=== PATIENT | female | born 1945 | race Caucasian/White ===

== ENCOUNTER 2018-03-03 13:09 | Inpatient (IN) | payer MEDICARE, BC ==
[~2018-03-03] VITALS: Ht 165.1 cm; Wt 86.2 kg
[2018-03-03] MEDS ORDERED: PANTOPRAZOLE 80 MG in IV NS 0.9% 500 ML IV ONE (13:30)
[2018-03-03] MEDS ORDERED: PANTOPRAZOLE 80 MG in IV NS 0.9% 100 ML IV ONE (13:30)
[2018-03-03] MEDS ORDERED: IV NS 0.9% 1,000 ML BAG IV ONE (13:30)
[2018-03-03 13:36] LABS: BASOPHILS % (AUTO) 0.2 % (0.0-2.0); EOSINOPHILS % (AUTO) 0.2 % (0.0-6.0); HEMATOCRIT 28 % (33-45); HEMOGLOBIN 9.8 g/dL (11.5-14.8); LYMPHOCYTES # (AUTO) 1.2 /CMM (0.8-4.8); LYMPHOCYTES % (AUTO) 9.4 % (20.0-44.0); MEAN CORPUSCULAR HGB CONC 35 g/dl (31.0-36.0); MEAN CORPUSCULAR VOLUME 90 fL (82-100); MONOCYTES # (AUTO) 0.4 /CMM (0.1-1.30); MONOCYTES % (AUTO) 3.1 % (2.0-12.0); NEUTROPHILS # (AUTO) 11.4 /CMM (1.8-8.9); NEUTROPHILS % (AUTO) 87.1 % (43.0-81.0); PLATELET COUNT (AUTO) 367 /CMM (150-450); RDW COEFFICIENT OF VARIATION 12.2 (11.5-15.0); RED BLOOD CELL COUNT(AUTO) 3.13 MIL/uL (4.0-5.2)
[2018-03-03] MEDS ORDERED: PANTOPRAZOLE 40 MG VIAL ONE (13:42)
[2018-03-03 13:45] LABS: CALCIUM, SERUM 8.3 mg/dL (8.5-10.1); CARBON DIOXIDE 23 mmol/L (21-32); CHLORIDE 105 mmol/L (98-107); CREATININE 0.8 mg/dL (0.6-1.3); GLUCOSE 231 mg/dL (74-106); POTASSIUM 4.3 mmol/L (3.5-5.1); SODIUM SERUM 137 mmol/L (136-145); UREA NITROGEN, BLOOD 31 mg/dL (7-18)
--- NOTE | 2018-03-03 13:45 | NUR ---
PAGED DR. OBANDO FOR CONSULT
[2018-03-03 13:50] LABS: INR 1.04 (0.85-1.15)
[2018-03-03 13:51] LABS: ALANINE AMINOTRANSFERASE 24 U/L (12-78); ALKALINE PHOSPHATASE 55 U/L (46-116); ASPARTATE AMINOTRANSFERASE 16 U/L (15-37); BILIRUBIN,DIRECT 0.2 mg/dL (0.0-0.2); BILIRUBIN,TOTAL 0.8 mg/dL (0.2-1.0); LIPASE 90 U/L (73-393)
--- NOTE | 2018-03-03 13:51 | NUR ---
IVONE JALLOH FOR PANEL - AGRICULTURAL RESEARCHER IS DR. RAYGOZA Addendum: 03/03/[address] AGRICULTURAL RESEARCHER IS DANNA CRAWFORD
[2018-03-03 13:54] LABS: TROPONIN I < 0.017 ng/mL (0.00-0.056)
--- NOTE | 2018-03-03 13:58 | NUR ---
NURSE SUP AWARE TELE BED NEEDED FOR PATIENT
[2018-03-03] MEDS ORDERED: ONDANSETRON HCL/PF 4 MG/2 ML VIAL IV ONE (14:00)
--- NOTE | 2018-03-03 14:00 | NUR ---
DR. CRAWFORD CALLED BACK AND IS SPEAKING WITH DR. BAKER FOR REPORT
[2018-03-03] MEDS ORDERED: ONDANSETRON HCL/PF 4 MG/2 ML VIAL ONE (14:02)
[2018-03-03] MEDS ORDERED: ATOR10TA PO (14:09)
[2018-03-03] MEDS ORDERED: ASPI-1169 PO (14:09)
[2018-03-03] MEDS ORDERED: MAG HYDROX/AL HYDROX/SIMETH 30 ML UDC PO PRN (14:30)
[2018-03-03] MEDS ORDERED: MAGNESIUM HYDROXIDE 30 ML UDC PO PRN (14:30)
[2018-03-03] MEDS ORDERED: ONDANSETRON HCL/PF 4 MG/2 ML VIAL IVP PRN (14:30)
[2018-03-03] MEDS ORDERED: ACETAMINOPHEN 325 MG TABLET PO PRN (14:30)
[2018-03-03] MEDS ORDERED: Z GUARD REMEDY 2 OZ OINT TP PRN (14:30)
[2018-03-03] MEDS ORDERED: HYDROCODONE/APAP 5/325MG 1 EACH TABLET PO PRN (14:30)
[2018-03-03] MEDS ORDERED: MAG30ORA PO (14:36)
[2018-03-03] MEDS ORDERED: LORA10TA68 PO (14:36)
--- NOTE | 2018-03-03 14:40 | NUR ---
REPORT GIVEN TO CHIP NASSAR.
[2018-03-03] MEDS ORDERED: MORPHINE SULFATE INJ 4 MG/ML DISP.SYRIN IV PRN (15:30)
--- NOTE | 2018-03-03 15:30 | NUR ---
RESEARCH AND DEVELOPMENT RESEARCHER NOTE: RECEIVED PATIENT IN ROOM 110 AND REPORT WAS GIVEN BY CECILIA BROWN RN. TRANSFERRED FROM ER VIA STRETCHER AND ACCOMPANIED BY THE AND 2 ER STAFF. PATIENT IS ALERT, ORIENTED AND ABLE TO MAKE HER NEEDS KNOWN. RESPIRATION IS EVEN AND UNLABORED. NO SHORTNESS OF BREATH NOTED. ON SUBSTANCE ABUSE TECHNICIAN, SR HR= 89. SATURATING 94% IN ROOM AIR. DENIED ANY PAIN. (R) AC 20G NOTED IN PLACED INTACT AND PATENT. HOB ELEVATED AT A MINIMAL PER PATIENT'S REQUEST. COMPLETE BODY ASSESSMENT WAS DONE. SKIN IS INTACT. AFEBRILE. CALL LIGHT WITHIN REACH. NEEDS ANTICIPATED. V/S= 127/62, 98.5, 89, 20, 94% IN ROOM AIR, 0/10.
[2018-03-03 16:00] VITALS: BP 127/62
--- NOTE | 2018-03-03 16:00 | NUR ---
ALLERGIST NOTE: URINE SPECIMEN WAS COLLECTED AND IT WAS SENT TO THE LAB.
[2018-03-03] MEDS: PANTOPRAZOLE 40 MG VIAL IV SCH (16:19)
[2018-03-03] MEDS: IV NS 0.9% 1,000 ML IV PRN (16:20)
[2018-03-03 18:06] VITALS: BP 129/61
[2018-03-03 19:36] LABS: APPEARANCE,URINE CLEAR (CLEAR); BILIRUBIN,URINE NEGATIVE (NEGATIVE); BLOOD, URINE NEGATIVE Ery/uL (NEGATIVE); COLOR,URINE YELLOW (YELLOW); KETONES,URINE NEGATIVE (NEGATIVE); LEUKOCYTE ESTERASE ,URINE NEGATIVE (NEGATIVE); NITRITE, URINE NEGATIVE (NEGATIVE); PROTEIN,URINE NEGATIVE (NEGATIVE); UGLUCOSE NEGATIVE (NEGATIVE); UROBILINOGEN,URINE 0.2 EU/dL (0.2)
--- NOTE | 2018-03-03 19:51 | NUR ---
DITCHING MACHINE OPERATOR NOTE: PATIENT IS ON STABLE CONDITION AT THIS TIME. DENIED ANY PAIN. NO NAUSEA/VOMITING NOTED DURING THE SHIFT. IV FLUID (NS@75ML/HR) INFUSING ON THE (R) AC WITH NO DISCOMFORT. PATIENT PREFERRED TO HAVE HER HEAD LAYING FLAT AND LESS MOVEMENT TO PREVENT HER FROM FEELING NAUSEOUS. REPORT GIVEN TO CHIP GARCIA FOR CONTINUITY OF CARE. SHE WAS INTRODUCED TO THE PATIENT AND .
[2018-03-03 20:00] VITALS: BP 99/48
--- NOTE | 2018-03-03 20:00 | NUR ---
MOLD MACHINE OPERATOR OPENING NOTES RECEIVED REPORT FROM KALYAN SAUNDERS. PATIENT A/A/O X4, ABLE TO MAKE NEEDS KNOWN. BREATHING EVEN & UNLABORED, TOLERATING ROOM AIR. ON TELE W/ SINUS RHYTHM, HR 85. RIGHT AC IV #20 INTACT & PATENT W/ DRESSING CDI & IVF NS INFUSING WELL @ 75 ML/HR. CURRENTLY ON BEDREST. DENIES ANY PAIN OR DISCOMFORT @ THIS TIME. NO N/V NOTED. SAFETY MEASURES MAINTAINED & INSTRUCTED TO USE CALL LIGHT FOR ASSISTANCE. WILL CONTINUE TO MONITOR.
[2018-03-03 21:22] LABS: BASOPHILS % (AUTO) 0.1 % (0.0-2.0); HEMATOCRIT 21 % (33-45); LYMPHOCYTES # (AUTO) 0.9 /CMM (0.8-4.8); LYMPHOCYTES % (AUTO) 9.2 % (20.0-44.0); MEAN CORPUSCULAR HGB CONC 34 g/dl (31.0-36.0); MEAN CORPUSCULAR VOLUME 95 fL (82-100); MONOCYTES # (AUTO) 0.3 /CMM (0.1-1.30); MONOCYTES % (AUTO) 2.5 % (2.0-12.0); NEUTROPHILS % (AUTO) 88.2 % (43.0-81.0); PLATELET COUNT (AUTO) 265 /CMM (150-450); RDW COEFFICIENT OF VARIATION 13.2 (11.5-15.0); RED BLOOD CELL COUNT(AUTO) 2.19 MIL/uL (4.0-5.2); WHITE BLOOD COUNT (AUTO) 10.2 K/uL (4.3-11.0)
--- NOTE | 2018-03-03 21:29 | NUR ---
RN NOTE RECEIVED CALL FROM LAB, HG 7.0, NOTIFIED PRIMARY NURSE RADHA SAUNDERS
--- NOTE | 2018-03-03 22:00 | NUR ---
OFFICE MACHINE SERVICE SUPERVISOR NOTES HGB = 7.0. CALLED JENSEN GARAY & RECEIVED NEW ORDER FOR 2 UNITS PRBC & RECHECK H/H TOMORROW MORNING. NEW ORDERS CARRIED OUT.
[2018-03-04] VITALS (10 sets, daily range): BP systolic 105–136; BP diastolic 36–57
--- NOTE | 2018-03-04 00:25 | NUR ---
PROGRAM OR PROJECT ADMINISTRATOR NOTES ONE UNIT PRBC STARTED. CHECK & VERIFIED W/ 2ND RN ISIDRO. VSS. WILL MONITOR FOR ANY ADVERSE EFFECTS.
--- NOTE | 2018-03-04 00:40 | NUR ---
REPRODUCTION MACHINE LOADER NOTES VSS. NO INITIAL ADVERSE EFFECTS NOTED. WILL CONTINUE TO MONITOR.
--- NOTE | 2018-03-04 04:00 | NUR ---
OPERATIONS ASST NOTES ONE UNIT PRBC TRANSFUSION END. NO ADVERSE REACTIONS NOTED. VSS. SECOND UNIT TO BE TRANSFUSED.
--- NOTE | 2018-03-04 04:30 | NUR ---
CONSULTING PRACTICE MANAGER NOTES 2ND UNIT PRBC TRANSFUSION STARTED. CHECKED & VERIFIED W/ 2ND RN DUDLEY. VSS. WILL MONITOR FOR INITIAL ADVERSE REACTIONS.
--- NOTE | 2018-03-04 07:22 | NUR ---
MACHINERY MOVER NOTE: RECEIVED PATIENT IN BED, AWAKE, ALERT AND VERBALLY RESPONSIVE. RESPIRATION IS EVEN AND UNLABORED. RECEIVED REPORT FROM PM SHIFT NURSE THAT PATIENT WAS S/P BLOOD TRANSFUSION X2 PRBC WILL CONTINUE TO MONITOR FOR ANY ADVERSE EFFECTS. HOB ELEVATED. CALL LIGHT WITHIN REACH. KEPT NPO AFTER MIDNIGHT IN PREPARATION FOR THE EGD AT 1330.
[2018-03-04] MEDS: PANTOPRAZOLE 40 MG VIAL IV SCH ×2 (09:44→17:18)
[2018-03-04 10:29] LABS: BASOPHILS % (AUTO) 0.1 % (0.0-2.0); EOSINOPHILS % (AUTO) 0.1 % (0.0-6.0); HEMATOCRIT 26 % (33-45); HEMOGLOBIN 8.7 g/dL (11.5-14.8); LYMPHOCYTES # (AUTO) 2.7 /CMM (0.8-4.8); LYMPHOCYTES % (AUTO) 22.4 % (20.0-44.0); MEAN CORPUSCULAR HGB CONC 33 g/dl (31.0-36.0); MEAN CORPUSCULAR VOLUME 91 fL (82-100); MONOCYTES # (AUTO) 0.9 /CMM (0.1-1.30); MONOCYTES % (AUTO) 7.5 % (2.0-12.0); NEUTROPHILS # (AUTO) 8.3 /CMM (1.8-8.9); NEUTROPHILS % (AUTO) 69.9 % (43.0-81.0); PLATELET COUNT (AUTO) 215 /CMM (150-450); RED BLOOD CELL COUNT(AUTO) 2.87 MIL/uL (4.0-5.2); WHITE BLOOD COUNT (AUTO) 11.9 K/uL (4.3-11.0)
[2018-03-04 10:50] LABS: CALCIUM, SERUM 7.6 mg/dL (8.5-10.1); CARBON DIOXIDE 21 mmol/L (21-32); CHLORIDE 113 mmol/L (98-107); CREATININE 0.7 mg/dL (0.6-1.3); GLUCOSE 113 mg/dL (74-106); MAGNESIUM 1.9 mg/dL (1.8-2.4); PHOSPHORUS 2.6 mg/dL (2.5-4.9); POTASSIUM 3.7 mmol/L (3.5-5.1); SODIUM SERUM 144 mmol/L (136-145); UREA NITROGEN, BLOOD 23 mg/dL (7-18)
[2018-03-04 10:54] LABS: CHOLESTEROL 73 mg/dL (<200); HDL CHOLESTEROL 28 mg/dL (40-60); LDL 42 mg/dL (0-99); TRIGLYCERIDES 91 mg/dL (30-150)
[2018-03-04 10:55] LABS: THYROID STIMULATING HORMONE 1.432 uIU/mL (0.358-3.74)
--- NOTE | 2018-03-04 12:45 | NUR ---
WEIGHT LOSS CONSULTANT NOTE: PATIENT WAS TRANSPORTED TO THE O.R. FOR THE EGD PROCEDURE ACCOMPANIED BY 2 ER STAFF AND JESSA, WENT WITH THE PATIENT IN THE O.R. PRE-OP CHECKLIST WAS DONE. CHART WAS BROUGHT WITH THE PATIENT.
--- NOTE | 2018-03-04 14:00 | NUR ---
BIOLOGICAL CHEMIST NOTE: RECEIVED PATIENT BACK TO HER ROOM, AWAKE, ALERT AND VERBALLY RESPONSIVE. , JESSA PRESENT AT THE BEDSIDE. NO NAUSEA/VOMITING NOTED. DENIED PAIN. RECEIVED ORDERS FROM DR. OBANDO.
[2018-03-04] MEDS: IV NS 0.9% 1,000 ML IV PRN (14:57)
[2018-03-04] MEDS: SUCRALFATE 1 G TABLET PO SCH ×2 (17:18→21:01)
--- NOTE | 2018-03-04 19:20 | NUR ---
DEPLOYMENT ENGINEER NOTE: PATIENT ON STABLE CONDITION. BEDSIDE REPORT WAS GIVEN WITH THE PM SHIFT NURSE FOR CONTINUITY OF CARE.
[2018-03-04 20:22] LABS: BASOPHILS # (AUTO) 0.1 /CMM (0.0-0.2); BASOPHILS % (AUTO) 0.6 % (0.0-2.0); EOSINOPHILS % (AUTO) 0.8 % (0.0-6.0); HEMATOCRIT 24 % (33-45); LYMPHOCYTES # (AUTO) 2.8 /CMM (0.8-4.8); LYMPHOCYTES % (AUTO) 27.7 % (20.0-44.0); MEAN CORPUSCULAR HGB CONC 33 g/dl (31.0-36.0); MEAN CORPUSCULAR VOLUME 90 fL (82-100); MONOCYTES # (AUTO) 0.6 /CMM (0.1-1.30); MONOCYTES % (AUTO) 6.2 % (2.0-12.0); NEUTROPHILS # (AUTO) 6.6 /CMM (1.8-8.9); NEUTROPHILS % (AUTO) 64.7 % (43.0-81.0); PLATELET COUNT (AUTO) 219 /CMM (150-450); RDW COEFFICIENT OF VARIATION 16.9 (11.5-15.0); RED BLOOD CELL COUNT(AUTO) 2.67 MIL/uL (4.0-5.2); WHITE BLOOD COUNT (AUTO) 10.2 K/uL (4.3-11.0)
[2018-03-05] VITALS (11 sets, daily range): BP systolic 115–153; BP diastolic 42–75
[2018-03-05 06:21] LABS: BASOPHILS # (AUTO) 0.1 /CMM (0.0-0.2); BASOPHILS % (AUTO) 0.7 % (0.0-2.0); EOSINOPHILS % (AUTO) 1.6 % (0.0-6.0); HEMATOCRIT 22 % (33-45); HEMOGLOBIN 7.6 g/dL (11.5-14.8); LYMPHOCYTES # (AUTO) 2.4 /CMM (0.8-4.8); LYMPHOCYTES % (AUTO) 30.9 % (20.0-44.0); MEAN CORPUSCULAR HGB CONC 34 g/dl (31.0-36.0); MEAN CORPUSCULAR VOLUME 91 fL (82-100); MONOCYTES # (AUTO) 0.4 /CMM (0.1-1.30); MONOCYTES % (AUTO) 5.7 % (2.0-12.0); NEUTROPHILS # (AUTO) 4.7 /CMM (1.8-8.9); NEUTROPHILS % (AUTO) 61.1 % (43.0-81.0); PLATELET COUNT (AUTO) 190 /CMM (150-450); RED BLOOD CELL COUNT(AUTO) 2.48 MIL/uL (4.0-5.2); WHITE BLOOD COUNT (AUTO) 7.7 K/uL (4.3-11.0)
[2018-03-05] MEDS: IV NS 0.9% 1,000 ML IV PRN (06:32)
--- NOTE | 2018-03-05 07:00 | NUR ---
SPRING ASSEMBLER INITIAL NOTES RECEIVED PT FROM PM NURSE, PT A&O X4 NIGERIAN SPEAKING, ON TELE MON SR WITH HR 86, RT AC 20 NS RUNNING 75 ML/HR NO INFILTRATION NOTED, ON ROOM AIR NO SOB OR ACUTE DISTRESS NOTED, SIDE RAILS X2, BED LOW AND LOCKED, WILL CONTINUE TO MONITOR.
[2018-03-05] MEDS: PANTOPRAZOLE 40 MG VIAL IV SCH ×2 (09:03→17:23)
[2018-03-05] MEDS: SUCRALFATE 1 G TABLET PO SCH ×3 (09:33→17:22)
[2018-03-05] MEDS ORDERED: PANT40TA2 PO (12:15)
--- NOTE | 2018-03-05 13:14 | NUR ---
METAL ROOFING MECHANIC NOTES PTS ORTHOSTATIC VS BEFORE AND AFTER BLOOD TRANSFUSION VALUES : BEFORE BP VALUES ARE SITTING 153/66,STANDING 148/75, SUPINE 148/59.
--- NOTE | 2018-03-05 15:00 | NUR ---
BOOT AND SHOE LABORER NOTES PT STARTED 1 UNIT BLOOD TRANFUSION PER MD ORDER, PTS VITALS STABLE BP 136/56, HR 80, RESP 16, O2 97%, PAIN 0/10 TEMP 98.1, NO SIGNS AND SYMPTOMS OF ACUTE DISTRESS PRIOR TO TRANSFUSION, WILL CONTINUE TO MONITOR.
--- NOTE | 2018-03-05 15:15 | NUR ---
IMAGING ACCOUNT MANAGER NOTES PT TRANSFUSING BLOOD AT 60ML/HR PER MD ORDER, NO HEADACHE, NO BACK PAIN OR ANY ACUTE REACTION NOTED AT THIS TIME,VITAL SIGNS STABLE, WILL CONTINUE TO MONITOR IF STABLE WILL INCREASE RATE PER MD ORDER.
--- NOTE | 2018-03-05 18:55 | NUR ---
MANAGER TALENT ACQUISITION NOTES ORTHOSTATIC PRESSURES DONE AFTER BLOOD TRANSFUSION, BP SUPINE 124/48, SITTING 143/53. STANDING 137/62. PT STATES NO DIZZINESS.
--- NOTE | 2018-03-05 19:07 | NUR ---
WEB CONTENT COORDINATOR ENDING NOTES PT DC PAPERWORK COMPLETED AND SIGNED, EXIT CARE DONE, BELONGINGS LIST SIGNED AND COMPLETED, PRESCRIPTION GIVEN TO [facility] FOR PT TO OFFICE MACHINES SALES REPRESENTATIVE TOMORROW MORNING, PT STABLE TO GO HOME, WILL GIVE REPORT TO PM NURSE TO REMOVE IV AND SEND PT HOME WITH .
--- NOTE | 2018-03-05 19:29 | NUR ---
ASSEMBLER WIRE MESH GATE CLOSING NOTES PT LEFT VIA WHEELCHAIR WITH , PTS TELE BOX REMOVED,IV SITE REMOVED WITH NO SIGNS OF REDNESS OR INFILTRATION NOTED, PT WAS ABLE TO URINATE AND WALK BEFORE LEAVING, NO SIGNS OF DISTRESS OR DIZZINESS NOTED, ALL DC PAPERWORK GIVEN TO PT.
== END 2018-03-05 19:58 | disposition home or self-care (01) | DRG 378 ==
LOC: ER 13:10 → TELE1 14:24
PROVIDERS: ADMIT Registered Nurse; ATTEND Registered Nurse
PROC: 0DB78ZX Excision of Stomach, Pylorus, Via Natural or Artificial Opening Endoscopic, Diagnostic (ICD-10-PCS; 2018-03-04)
PROC: 30233N1 Transfusion of Nonautologous Red Blood Cells into Peripheral Vein, Percutaneous Approach (ICD-10-PCS; 2018-03-04)
PROC: 0DB48ZX Excision of Esophagogastric Junction, Via Natural or Artificial Opening Endoscopic, Diagnostic (ICD-10-PCS; principal; 2018-03-04 13:18)
DX: K27.0 Acute peptic ulcer, site unspecified, with hemorrhage (principal); D62 Acute posthemorrhagic anemia; E86.0 Dehydration; E78.5 Hyperlipidemia, unspecified; E11.9 Type 2 diabetes mellitus without complications; D72.829 Elevated white blood cell count, unspecified; K20.9 Esophagitis, unspecified; K29.70 Gastritis, unspecified, without bleeding; K44.9 Diaphragmatic hernia without obstruction or gangrene; M72.2 Plantar fascial fibromatosis; D16.00 Benign neoplasm of scapula and long bones of unspecified upper limb; E66.9 Obesity, unspecified; Z68.31 Body mass index [BMI] 31.0-31.9, adult
CPT/HCPCS: 36415; 71045-TC; 80048-TC; 80061-TC; 80076-TC; 81000-TC; 83690-TC; 83735-TC; 84100-TC; 84443-TC; 84484-TC; 85025-TC; 85730-TC; 86850-TC; 86921-TC; 87081-TC; 88305-TC; 88312-TC; 88313-TC; 88342; A4606; C9113; J2405; J2704; J3490; J7030; J7040; J7050; P9016-BL; Z7610